=== PATIENT | male | born 1995 | race Caucasian/White ===

== ENCOUNTER → 2017-01-18 | Outpatient (CLI) | payer OTHER ==
--- NOTE | 2017-01-18 15:11 | NUR ---
ALCOHOL/DRUG TEST AND EVALUATION 2 HRS: Clt is present as directed by Judge Neely. See written eval for test results and recommendations.
--- NOTE | 2017-01-26 09:43 | CDE ---
ADMIT: 01/18/2017 RM/LOC: [facility] MR#: [id number] [address] [facility] [address] [place] [id number] HAN HERNÁNDEZ [address] [place] [address] Chemical Dependency Evaluation SEX: M AGE: 21 : 1995 A. DEMOGRAPHICS: NAME: Han Hernández DATE OF : 1995 EVALUATING COUNSELOR: HADLEY Feliciano LAD DATE OF EVALUATION: 01/18/2017. B. PRESENTING PROBLEM/CHIEF COMPLAINT: Client reported he was charged with possession of marijuana, and was ordered by Judge Neely to have this evaluation completed before his sentencing on 02/14/17. C. MEDICAL HISTORY: Client denies any illnesses, accidents, injuries, or operations, is not currently under any doctor's care and has no health concerns. D. WORK/SCHOOL/ HISTORY: Client reported he graduated from high school at [employer]. He has no future or present goals in the area of education. 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 He works 30-40 hours, and he denies being in the . E. ALCOHOL/DRUG ASSESSMENT SUMMARY: ALCOHOL: Age of first use was 11. He stated he has not been ever much of a drinker. He does not know when he last year used. However, it was approximately 7 years ago. MARIJUANA: Age of first use was 9. He stated he has been a daily smoker most of his life and smokes up to half an ounce a day. He stated his last date of use was 2 weeks ago, which was approximately 01/06/2017. COCAINE: Age of first use was 18. He stated that he tried it a couple of times, but it has been years ago. METHAMPHETAMINES: Age of first use was 18. He stated he has used it a few times, but his last date of use was in September of 2016. HALLUCINOGENS: No use reported. HEROIN: No use reported. PRESCRIPTION DRUGS: No use reported. OTHER DRUGS (INHALANTS, OVER THE COUNTER, ETC): He stated he abused Seroquel in 2009. It was not his prescription. He wanted to sleep at night, so he took someone else's prescription. NICOTINE: Age of first use was 10. He stated he smokes on a daily basis. Negative consequences include: He does not talk to his family; he does not have friends; he spent money on marijuana; and legal. ADMIT: 01/18/2017 RM/LOC: [facility] MR#: [id number] [address] [place], [place] [id number] [place] [address] Chemical Dependency Evaluation SEX: M AGE: 21 : 1995 F. LEGAL HISTORY: Client reported he has a possession of marijuana charge pending. G. FAMILY/SOCIAL/PEER HISTORY: Client reported he was raised by himself more than anything, here in [place]. His family upbringing was not great. His mother is an addict and his parents are . He stated his relationship with his mother is close now, and he has no relationship with his dad. He is not in a relationship and has no children. Client also has 3 brothers. He associates with users and nonusers. 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 H. PSYCHIATRIC/BEHAVIORAL HISTORY: Client denies ever being suicidal or being under any inpatient or outpatient treatment for mental health. I. COLLATERAL INFORMATION: I did talk with the probation office and she is fine with the recommendation that we recommend. I did not call anyone else. THE DRINKER TYPE RATING: Is a measure of how the client perceives their own drinking and/or using. This rating is indicative of how resistant or accepting the person is to the drinking problem. The client chose their rating from the following classifications: ALCOHOL Total Abstainer Light Social (non-problem) Drinker Moderate Social (non-problem) Drinker User Heavy Social (non-problem)Drinker Problem Drinker Alcoholic OTHER DRUG Nonuser Light Social (non-problem) User Moderate Social (non-problem) User Heavy Social (non-problem) User Problem User Addicted/Dependent Client circled total abstainer of alcohol and moderate social nonproblem user. ADMIT: 01/18/2017 RM/LOC: [facility] MR#: [id number] [address] [place] [address] HAN HERNÁNDEZ [address] [place] [address] Chemical Dependency Evaluation SEX: M AGE: 21 : 1995 SUBSTANCE ABUSE SUBTLE SCREENING INVENTORY (SASSI): The SASSI is an assessment tool specifically designed to provide a clearer picture of what lies beneath the facade presented by most patients or clients. Scores on this assessment aid in distinguishing nonabusers from abusers, alcoholics from drug abusers and nondefensive clients from defensive ones. The incorporation of a "denial scale" further enhances the ability to make an accurate recommendation. Client scores are: Face Valid Alcohol (FVA): 0 Face Valid Other Drugs (FVOD): 8 Symptoms (SYM): 1 Obvious Attributes (OAT): 7 Subtle Attributes (SAT): 3 Defensiveness (DEF): 6 Supplemental Addiction Measure (AMBROSE): 7 Family versus Controls (FAM): 10 Correctional (COR): 4 Random Answering Pattern (RAP):0 These scores would indicate that he has a high probability of having a substance dependence disorder. We administered the ASI. Please see attached summary sheet. K. CLINICAL IMPRESSION: In the beginning of this interview and evaluation, client was very angry. When asked what he was angry about, he stated he did want to be here and people keep asking his questions. By the time he left, he was more open and was friendly. His DSM diagnosis is 304.30, Cannabis Use Disorder, severe. L. RECOMMENDATIONS PRESENTED TO CLIENT: It is recommended that client participate in outpatient treatment. He reported he had been seen by Alonso Maradiaga, MS, LMHP, LADC, CSAT previously and asked if he could return to Alonso. I did speak with Alonso and he will be recommended to do outpatient with him. M. CLIENT/FAMILY RESPONSE: He is in agreement with this. ADMIT: 01/18/2017 RM/LOC: [facility] MR#: [id number] [address] [place] [address] Chemical Dependency Evaluation SEX: M AGE: 21 : 1995 ASAM CLINICAL ASSESSMENT CRITERIA: Low/Medium/High Dimension 1 = Intoxication and Withdrawal (i.e. history of withdrawal, level of current use): Low. Dimension 2 = Medical (i.e. , diabetes, medications, chronic conditions): Low. Dimension 3 = Emotional/Behavior Conditions (i.e. psych history, impulsivity, depression, anxiety, trauma history): Medium. Dimension 4 = Treatment Acceptance/Resistance (i.e. past history, minimization/blame, acknowledgement of problem, pressure to seek treatment, does not feel they have a problem): Medium. Dimension 5 = Relapse Potential (i.e. inability to abstain, use despite consequences, significant preoccupation, relapse despite outpatient treatment attempts): Medium. Dimension 6 = Recovery/Living Environment (i.e. current users reside in environment, family attitude, lack of consistent adult support in living environment, high exposure to using in social/work environment): Medium. CRIMINOGENIC RISK FACTORS: Low/Moderate/High Antisocial Attitudes: High. Antisocial Peers: Low. Self Control Skills: Medium. Family Dysfunction: Medium. Past Criminality: Low. HADLEY Feliciano,DENILSON/ juan antonio JOB #: [id number] CC:
== END | disposition home or self-care (01) ==
LOC: ADTC.GI 12-21 10:00
DX: F12.20 Cannabis dependence, uncomplicated (principal)